=== PATIENT | male | born 1995 | race Caucasian/White ===

== ENCOUNTER 2022-03-26 20:35 | Emergency (ER) | payer OTHER ==
[~2022-03-26] VITALS: Ht 163.8 cm; Wt 83.5 kg
[2022-03-26 21:32] VITALS: BP_SYST 148
--- NOTE | 2022-03-26 21:49 | NUR ---
26 YR OLD MALE WITH COMPLAINT OF BACK PAIN AFTER LIFTING A BOX AT WORK EARLIER TODAY. PT STATES HE HAS DIFFICULTY WALKING AND IS UNABLE TO LIFT STAND UPRIGHT. PT PENDING MD EVALUATION
--- NOTE | 2022-03-26 22:22 | NUR ---
MD COELHO AT THE BEDSIDE
[2022-03-26] MEDS ORDERED: HYDR-3917 PO (23:05)
[2022-03-26] MEDS ORDERED: IBUP-1969 PO (23:05)
[2022-03-26] MEDS ORDERED: IBUPROFEN 600 MG TABLET PO ONE (23:15)
[2022-03-26] MEDS ORDERED: OXYCODONE/ACETAMINOPHEN 5-325 TABLET PO ONE (23:15)
[2022-03-27 00:31] VITALS: BP_SYST 116
--- NOTE | 2022-03-27 00:31 | NUR ---
Patient given written and verbal discharge instructions and verbalizes understanding. ER MD discussed with patient the results and treatment provided. Patient in stable condition. ID arm band removed. Rx of Mellen 5/325 and Ibuprofen 600 mg sent to given. Patient educated on pain management and to follow up with PMD. Opportunity for questions provided and answered.
== END 2022-03-27 00:31 | disposition home or self-care (01) ==
LOC: SED 20:35
DX: S39.012A Strain of muscle, fascia and tendon of lower back, initial encounter (principal); X50.0XXA Overexertion from strenuous movement or load, initial encounter; Y93.89 Activity, other specified; Y92.89 Other specified places as the place of occurrence of the external cause; Y99.8 Other external cause status
CPT/HCPCS: 72100-TC; 99283